=== PATIENT | male | born 1950 ===

== ENCOUNTER 2025-05-12 15:54 | Outpatient (AMB) | payer MEDICARE, MEDICAID, SELFPAY ==
--- NOTE | 2025-05-12 15:52 | MHC.OFFVIS ---
Vital Signs 05/12/25 15:53 Height 5 ft 7 in Weight 180 lb BMI 28.2 BP 189/91 H Blood Pressure Location Lt brachial Position Sitting Respiration 16 Pulse 92 Pulse Source Pulse Oximeter Pulse Oximetry (%) 99 Oxygen Delivery Method Room Air Intake Visit Reasons: Peripheral Neuropathy Residential Manager Required: No Accompanied by: Self / Same As Patient Allergies hydrochlorothiazide Adverse Reaction (Mild, Verified 05/12/25 15:59) Dizziness HPI Comments Details: Josr is very pleasant 75 years old gentleman who presents in my office with complains on severe polyneuropathy in bilateral feet and bilateral hands. He reports that this neuropathy is a result of chemotherapy which was applied to him over long period of time starting from 2008 when he was discovered with multiple myeloma. He received multiple rounds of chemotherapy with Velcade and another multiple chemotherapy medications which eventually developed polyneuropathy. Continue to take chemotherapy at this time throat [facility]. He had stem cell transplant in 2011 in the same organization. He also reports significant pain in bilateral shoulders he believes that he has lumbar radiculopathy as well as cervical radiculopathy. He is also suffering from diabetes and part of his neuropathy could be related to diabetes because his hemoglobin A1c is above 8. He is on 3 diabetic medications glimepiride metformin and Jardiance. He is on pregabalin which helps his polyneuropathy minimally to moderately. He is able to sleep normally he can not do activities of daily living, he can take care of himself but he can not function normally. He is retired individual. He needs walker for ambulation. In terms of tissue damage he describes his pain as pinching cramping crushing, hot burning scalding searing, tingling stinging, dull hurting heavy, tight squeezing tearing, cool called freezing sensation. He went for extensive physical therapy which were is working on his walking balance and strength. He had multiple images of the lumbar and thoracic and cervical spines including MRIs. His past medical history significant for hypertension heart murmur anemia diabetes arthritis and sexual dysfunction. He is suffering from multiple myeloma. He is currently stable with his condition and does not require chemotherapy adjustment. His past surgical history significant for autologous stem-cell transplant in 2011 and port insertion in 2009. Social history he denies smoking cigarettes, very rarely consumes alcohol, drinks coffee once a day, take medical marijuana 2 to 3 times a week which helps his pain minimally however reduces his anxiety about his pain. Review of Systems Const All systems reviewed & are unremarkable except as noted in HPI and below ENT Reports Normal hearing present Neuro Reports Normal hearing present, Denies Abnormal speech present, Denies confusion and Denies Sensory deficit (Neuro) Psych Denies confusion Physical Exam Vital Signs: Last Vital Signs Pulse 92 05/12/25 15:53 Resp 16 05/12/25 15:53 BP 189/91 H 05/12/25 15:53 Pulse Ox 99 05/12/25 15:53 Oxygen Delivery Method Room Air 05/12/25 15:53 BMI result Body Mass Index 28.2 Const General: no acute distress; No confusion Orientation/consciousness: patient oriented x3 and No confusion Eyes General: appearance normal, both eyes and all related structures Pupils: Equal, round and reactive pupils present EOM: EOMs intact bilaterally Neck Neck: Yes full ROM Chest Chest palpation & inspection: normal inspection of the chest Resp Effort & Inspection: normal respiratory effort, able to speak in complete sentences, normal respiratory pattern, no audible wheezes and no cough Cardio Jugular venous distension: no JVD GI Inspection: Yes normal to inspection Neuro General: patient oriented x3, gait normal and No confusion Cranial nerves: Yes CN's II-XII intact bilaterally, Yes Equal, round and reactive pupils present, Yes Normal hearing present and Yes Ability to bilaterally elevate shoulders present Speech: No Abnormal speech present Gait exam (Neuro): Normal gait present Motor exam (neuro): 5/5 motor strength present throughout Sensory Exam: No Sensory deficit (Neuro) Extrem General: No pedal edema Psych Speech and movement: Normal speech and movement present Affect: normal affect Attitude: cooperative Thought process: Normal thought process present Thought content: Normal thought content present Insight: Good insight present (Psych) Judgement: Good judgement present (Psych) Assessment & Plan Assessment & Plan (1) Multiple myeloma in remission: Code(s): C90.01 - Multiple myeloma in remission Category: Medical (2) Diabetes: Code(s): E11.9 - Type 2 diabetes mellitus without complications Category: Medical (3) Diabetic polyneuropathy: Code(s): E11.42 - Type 2 diabetes mellitus with diabetic polyneuropathy Category: Medical (4) Chronic pain syndrome: Code(s): G89.4 - Chronic pain syndrome Category: Medical Plan I will schedule this patient for psychological evaluation as soon as possible. He is a cancer patient and requires assistance as soon as possible. I am planning to perform [place] scientific spinal cord stimulator in cervical and thoracic positioned to alleviate pain in bilateral feet and pain in bilateral hands. As soon as he passes psychological evaluation I will schedule him for cervical spinal cord stimulator trial, following implantation of the device if he likes the spinal cord stimulator in the cervical positioned, after that I will perform trial of the lumbar SCS and I will perform implantation of the lumbar leads and connect them to the already implanted [place] scientific battery. Patient Instructions: I here by testify that I spent 45 minutes in conversation with this patient as well as planning his care and organizing this note. Coding Level of Care Code New Pt Level 4 (72426) Diagnoses Multiple myeloma in remission C90.01 Diabetes E11.9 Diabetic polyneuropathy E11.42 Chronic pain syndrome G89.4
[2025-05-12 15:53] VITALS: BP 189/91; PULSE 92; RESP 16; O2SAT 99; BMI 28.2
== END 2025-05-12 16:25 | disposition home or self-care (01) ==
PROVIDERS: PCP Nurse Practitioner Family; Referring Provider Nurse Practitioner Family; Visit Provider Anesthesiology
DX: C90.01 Multiple myeloma in remission (principal); E11.42 Type 2 diabetes mellitus with diabetic polyneuropathy; G89.4 Chronic pain syndrome
CPT/HCPCS: 99204

== ENCOUNTER → 2025-05-12 15:54 | Outpatient (BNVA) | payer MEDICARE, MEDICAID, SELFPAY | PROVIDERS: PCP Nurse Practitioner Family; Referring Provider Nurse Practitioner Family; Visit Provider Anesthesiology | DX: G89.4 Chronic pain syndrome (principal); C90.01 Multiple myeloma in remission; E11.42 Type 2 diabetes mellitus with diabetic polyneuropathy | CPT/HCPCS: 99202 ==